=== PATIENT | male | born 1950 | race Caucasian/White ===

== ENCOUNTER → 2017-10-23 | Outpatient (CLI) | payer OTHER ==
[~2017-10-23] MED LIST: ACYCLOVIR 800800 M1 PO; ALTACE PO; AMLODIPINE BESYL5 MG PO; ASPIRIN325; CILOXAN5 ML OP; GLUCOPHAGE500 MG PO; LOPRESSOR100 MG PO; LORTAB 5 MG/5001 TA1 PO; MEDROLDOSEPACK PO; NIACIN PO; NORCO 5-325 TA1 EACH PO; TOPROL XL50 MG; [UNRECOGNIZED DRUG - REMARK]
--- NOTE | 2017-10-23 15:47 | 2DMMODE ---
[place] [address] 2 D/M-MODE ECHOCARDIOGRAM Name: MIRANDA KEANE Room: [facility]#: [id number] Admission: 10/23/17 Attend Phys: Av Mendez, Discharge: Date of : 48 Date of Service: 10/23/17 1547 Report #: [id number] THIS REPORT FOR: //name// APPROVED REPORT Study performed: 10/23/2017 15:07:10 EXAM: Comprehensive 2D, Doppler, and color-flow Echocardiogram Patient Location: Out-Patient Status: routine BSA: 2.02 HR: 60 bpm BP: 138/88 mmHg Other Information Study Quality: Good Indications Aortic Valve Disease 2D Dimensions LVEF(%): 78.58 (>50%) IVSd: 11.16 (7-11mm) LVOT Diam: 20.92 (18-24mm) LVDd: 41.53 mm PWd: 11.40 (7-11mm) Ascending Ao: 28.66 (22-36mm) LVDs: 22.10 (25-40mm) Aortic Root: 28.64 mm Yen's LVEF: 78.58 % Volumes Left Atrial Volume (Systole) LA ESV Index: 15.00 mL/m2 Aortic Valve AoV Peak Mao.: 2.08 m/s AO Peak Gr.: 17.32 mmHg LVOT Max P.52 mmHg AO Mean Gr.: 9.56 mmHg LVOT Mean P.72 mmHg LVOT Max V: 1.46 m/s AO V2 VTI: 38.52 cm LVOT Mean V: 0.88 m/s PATRICK (VTI): 2.37 cm2 LVOT V1 VTI: 26.54 cm Mitral Valve E/A Ratio: 1.12 MV Decel. Time: 211.34 [place] [address] 2 D/M-MODE ECHOCARDIOGRAM Name: MIRANDA KEANE Room: [facility]#: [id number] Admission: 10/23/17 Attend Phys: Av Mendez, Discharge: Date of : 48 Date of Service: 10/23/17 1547 Report #: [id number] MV E Max Mao.: 0.74 m/s MV PHT: 61.29 ms MVA (PHT): 3.59 cm2 TDI E/Lateral E': 6.17 E/Medial E': 12.33 Medial E' Mao.: 0.06 m/s Lateral E' Mao.: 0.12 m/s Pulmonary Valve PV Peak Mao.: 1.15 m/s PV Peak Gr.: 5.31 mmHg Left Ventricle The left ventricle is normal size. There is normal LV segmental wall motion. There is normal left ventricular wall thickness. Left ventricular systolic function is normal. The left ventricular ejection fraction is within the normal range. LVEF is 60-65%. The left ventricular diastolic function is normal. Right Ventricle The right ventricle is normal size. The right ventricular systolic function is normal. Atria The left atrium size is normal. The right atrium size is normal. Aortic Valve Mild aortic valve sclerosis. Trace aortic regurgitation. No hemodynamically significant valvular aortic stenosis. Mitral Valve The mitral valve is normal in structure. Trace mitral regurgitation. No evidence of mitral valve stenosis. Tricuspid Valve The tricuspid valve is normal in structure. There is no tricuspid valve regurgitation noted. Pulmonic Valve The pulmonary valve is normal in structure. There is no pulmonic valvular regurgitation. Great Vessels The aortic root is normal in size. IVC is normal in size and collapses with >50% [place] [address] 2 D/M-MODE ECHOCARDIOGRAM Name: KEANEMIRANDA Room: [facility]#: [id number] Admission: 10/23/17 Attend Phys: Av Mendez, Discharge: Date of : 48 Date of Service: 10/23/17 1547 Report #: [id number] Pericardium There is no pericardial effusion. <Conclusion> The left ventricle is normal size. There is normal left ventricular wall thickness. Left ventricular systolic function is normal. The left ventricular ejection fraction is within the normal range. LVEF is 60-65%. The left ventricular diastolic function is normal. The right ventricle is normal size. The left atrium size is normal. Mild aortic valve sclerosis. Trace aortic regurgitation. No hemodynamically significant valvular aortic stenosis. The mitral valve is normal in structure. Trace mitral regurgitation. The tricuspid valve is normal in structure. IVC is normal in size and collapses with >50% inspiration There is normal LV segmental wall motion. <ELECTRONICALLY SIGNED> By: Sen Burnett MD, [facility] 10/23/17 1547 1547 1547 Sen Burnett MD, FACC /INF
[2017-10-23 16:09] LABS: CHOLESTEROL 198 mg/dL (<200); HDL CHOLESTEROL 35 mg/dL (>40); TC:HDL 5.7 Ratio (Not establshd); TRIGLYCERIDE 741 mg/dL (<150); VLDL 148 mg/dL (<40)
[2017-10-23 16:16] LABS: SERUM ASSESSMENT Slight Lipemia
== END ==
LOC: M.CRD 10-11 13:00
PROVIDERS: Internal Medicine Cardiovascular Disease
DX: E78.2 Mixed hyperlipidemia (principal)

== ENCOUNTER → 2018-06-29 | Outpatient (CLI) | payer OTHER ==
[2018-06-29 13:41] LABS: CHOLESTEROL 116 mg/dL (<200); HDL CHOLESTEROL 37 mg/dL (>40); LDL CHOLESTEROL 30 mg/dL (<100); TC:HDL 3.1 Ratio (Not establshd); TRIGLYCERIDE 245 mg/dL (<150); VLDL 49 mg/dL (<40)
[2018-06-29 13:44] LABS: SERUM ASSESSMENT Clear
== END ==
LOC: M.LAB 13:00
PROVIDERS: Internal Medicine Cardiovascular Disease
DX: E78.2 Mixed hyperlipidemia (principal)

== ENCOUNTER → 2019-12-26 | Outpatient (CLI) | payer OTHER ==
[2019-12-26 16:06] LABS: CHOLESTEROL 130 mg/dL (<200); HDL CHOLESTEROL 38 mg/dL (>40); LDL CHOLESTEROL 41 mg/dL (<100); SERUM ASSESSMENT Clear; TC:HDL 3.4 Ratio (Not establshd); TRIGLYCERIDE 256 mg/dL (<150); VLDL 51 mg/dL (<40)
[2019-12-27 02:06] LABS: LDL (DIRECT) CHOL 52 mg/dL (0-99)
== END ==
LOC: M.LAB 15:36
PROVIDERS: ATTEND Internal Medicine Cardiovascular Disease
DX: E78.2 Mixed hyperlipidemia (principal)

== ENCOUNTER → 2020-08-24 | Outpatient (CLI) | payer OTHER ==
[2020-08-24 13:54] LABS: HEMATOCRIT 41.7 % (42.0-52.0); HEMOGLOBIN 13.5 gm/dL (14.0-18.0)
[2020-08-24 14:06] LABS: ALBUMIN 3.7 g/dL (3.4-5.0); CALCIUM 8.8 mg/dL (8.5-10.1); CREATININE 1.4 mg/dL (0.6-1.3); PHOSPHORUS* 2.8 mg/dL (2.5-4.9); POTASSIUM 4.1 mmol/L (3.5-5.1); TOTAL BILIRUBIN 0.3 mg/dL (<0.1-1.0); TOTAL PROTEIN 6.9 g/dL (6.4-8.2)
[2020-08-24 14:14] LABS: CALCIUM 9.4 mg/dL (8.5-10.1); CREATININE 1.5 mg/dL (0.6-1.3)
== END ==
LOC: M.LAB 13:32
PROVIDERS: ATTEND Internal Medicine Nephrology
DX: N18.30 Chronic kidney disease, stage 3 unspecified (principal)